=== PATIENT | male | born 1990 | race Caucasian/White ===

== ENCOUNTER 2019-09-24 17:49 | Emergency (ER) | payer MEDICAID, OTHER ==
[2019-09-24] MEDS ORDERED: Tetracaine HCl/PF 0.5% 4 ML Bottle EYELF ONE (18:14)
[2019-09-24] MEDS ORDERED: Tetracaine HCl/PF 0.5% 4 ML Bottle ONE (18:15)
[2019-09-24] MEDS ORDERED: Dexamethasone/Tobramycin 0.1-0.3% Ophth Susp 2.5 ML Bottle EYELF SCH (18:30)
--- NOTE | 2019-09-24 18:34 | EDM.PDOC ---
ED HPI GENERAL MEDICAL PROBLEM - General Chief Complaint: Eye Problems Stated Complaint: LEFT EYE PAIN Time Seen by Provider: 09/24/19 18:11 Source of Information: Reports: Patient History Limitations: Reports: No Limitations - History of Present Illness INITIAL COMMENTS - FREE TEXT/NARRATIVE: Presents reporting he was trimming trees and sawing logs. He believes that he got some sawdust in his eye as it is windy out. His left eye is irritated, gritty and feels like there is something in it he has been tearing. No Change in vision. L eye Pain Score (Numeric/FACES): 10 - Related Data Allergies Allergy/AdvReac Type Severity Reaction Status Date / Time amoxicillin Allergy Hives Verified 09/24/19 18:10 Home Meds: Home Meds . [No Known Home Meds] 09/24/19 [History] ED ROS GENERAL - Review of Systems Review Of Systems: Comprehensive ROS is negative, except as noted in HPI. ED EXAM GENERAL W FULL EYE - Physical Exam Exam: See Below Exam Limited By: No Limitations General Appearance: Alert, No Apparent Distress Pupillary Size: Bilateral: 4 mm Pupillary Reaction: Bilateral: Brisk Comments: Exam under flourescien stain with tetracaine anesthesia. 2 diminutive, superficial scratches at the 11 o'clock position over the iris. Eye irrigated with saline and 2 drops tobradex instilled. Ears: Normal External Exam Nose: Normal Inspection Throat/Mouth: Normal Inspection Head: Atraumatic, Normocephalic Neck: Normal Inspection Respiratory/Chest: No Respiratory Distress, Lungs Clear Course - Vital Signs Last Recorded V/S: Last Vital Signs Temp 36.6 C 09/24/19 17:54 Pulse 71 09/24/19 17:54 Resp 17 09/24/19 17:54 BP 124/79 09/24/19 17:54 Pulse Ox 97 09/24/19 17:54 - Orders/Labs/Meds Meds: Medications Discontinued Medications Generic Name Dose Route Start Last Admin Trade Name Freq PRN Reason Stop Dose Admin Tetracaine HCl 1 ml 09/24/19 18:14 09/24/19 18:24 Tetracaine 0.5% Steri-Unit Zuleyka EYELF 09/24/19 18:15 1 ml ASDIRECTED ONE Administration Tetracaine HCl Confirm 09/24/19 18:15 09/24/19 18:24 Tetracaine 0.5% Steri-Unit Zuleyka Administered 09/24/19 18:16 Not Given Dose 4 ml .ROUTE .STK-MED ONE Departure - Departure Time of Disposition: 18:37 Disposition: Home, Self-Care 01 Condition: Good Clinical Impression: Corneal abrasion Qualifiers: Encounter type: initial encounter Laterality: left Qualified Code(s): S05.02XA - Injury of conjunctiva and corneal abrasion without foreign body, left eye, initial encounter - Discharge Information Referrals: PCP,None [Primary Care Provider] - [facility] [Outside] Additional Instructions: 1. Eye drop 2 drops every 4 hours next 48 hours or until symptoms resolve. 2. Follow up in ophthalmology or return to ER promptly for vision changes, worsening or non-improving symptoms. Sepsis Event Note - Evaluation Sepsis Screening Result: No Definite Risk - Focused Exam Vital Signs: Vital Signs Temp Pulse Resp BP Pulse Ox 09/24/19 17:54 36.6 C 71 17 124/79 97 Date Exam was Performed: 09/24/19 Time Exam was Performed: 18:29
== END 2019-09-24 18:55 | disposition home or self-care (01) ==
LOC: MW.ED 17:49
DX: S05.02XA Injury of conjunctiva and corneal abrasion without foreign body, left eye, initial encounter (principal); X58.XXXA Exposure to other specified factors, initial encounter
CPT/HCPCS: 99282; 99283